=== PATIENT | female | born 2000 | race Caucasian/White ===

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

== ENCOUNTER 2021-05-20 21:03 | Emergency (ER) | payer BC, MEDICAID, SELFPAY ==
[2021-05-20 21:14] VITALS: BP 126/72; PULSE 109; RESP 20; TEMP 36.6; O2SAT 100
--- NOTE | 2021-05-20 22:59 | PC.NURSE ---
No answer when called for vitals recheck.
--- NOTE | 2021-05-20 23:17 | PC.NURSE ---
not present in wr at current time. no answer when called.
== END 2021-05-20 23:18 | disposition left against medical advice (07) ==
LOC: ANHED 23:10
PROVIDERS: PCP Family Medicine Adolescent Medicine
DX: Z04.1 Encounter for examination and observation following transport accident (principal)
CPT/HCPCS: 99199

== ENCOUNTER 2021-10-07 09:31 | Emergency (ER) | payer BC, MEDICAID, SELFPAY ==
[2021-10-07 09:43] VITALS: BP 110/70; PULSE 94; RESP 18; TEMP 36.6; O2SAT 100
--- NOTE | 2021-10-07 10:02 | ED.URI ---
HPI - URI/Sore Throat General Chief Complaint: Upper Respiratory Infection Stated Complaint: COUGH/CP Time Seen by Provider: 10/07/21 10:02 Source: patient and RN notes reviewed Mode of arrival: ambulatory Limitations: no limitations History of Present Illness HPI Narrative: 21-year-old female presented for complaint of nonproductive cough with associated chest pain with coughing and sneezing since last night. She took a negative home COVID test yesterday. Also states 2 weeks ago she tested positive for COVID. She denies associated shortness of breath, wheezing, nausea, vomiting, fevers or chills. Patient is 37 weeks gestation. She has not been taking anything for symptoms. MD elicited complaint: cough Related Data Home Medications Medication Instructions Recorded Confirmed prenat.vits,karen,[id number] 1 tablet PO DAILY 07/24/21 07/29/21 Allergies Allergy/AdvReac Type Severity Reaction Status Date / Time No Known Allergies Allergy Verified 10/07/21 10:08 Review of Systems Review of Systems: CONSTITUTIONAL: denies malaise, chills, sweats, fever EYES: Denies visual changes, redness, or discharge ENT: Reports rhinorrhea, congestion, denies sinus pain, otalgia, sore throat CARDIOVASCULAR: Denies palpitations, edema RESPIRATORY: Reports cough, post nasal drainage. Denies dyspnea GASTROINTESTINAL: Denies abdominal pain, nausea, vomiting, diarrhea SKIN: Denies rash or itching MUSCULOSKELETAL: denies myalgia NEUROLOGIC: Denies headache [facility] Family History Family History Other Breast cancer Unknown family medical history Social History Social History Tobacco type: e-cigarettes/vaping Second hand tobacco smoke exposure: Yes Alcohol intake: current Alcohol use details: Socially Substance use: current Last use: LAST TIME-AUGUST 2018 Gender identity (if verbalized by the patient): Female Spiritual care concerns: No Agree to blood products: Yes Exam Narrative: GENERAL: well-appearing EYES: conjunctivae clear ENT: Mucous membranes moist. TM pearly valderrama with dull light reflex bilaterally; no tragal tenderness. Oropharynx erythematous without lesions or exudate, no drooling, no hoarseness, no trismus, uvula midline. NECK: Supple. No lymphadenopathy CHEST: Clear to auscultation, breath sounds equal. No wheezing, rhonchi, rales, or stridor. No respiratory distress, speaks in full sentences. HEART: Regular rate and rhythm. No murmur heard. SKIN: Warm, dry, no rash. NEURO: Alert and oriented x3. PSYCH: Normal mood and affect Course Course Emergency Course: Patient is aware of diagnosis, understands and agrees to treatment plan. Anticipatory guidance given. Patient agrees to follow-up as directed and is aware of reasons to seek care at the emergency department. Portions of this record may have been created with voice recognition software Level of Care: Express Care Visit Vital Signs Vital signs: Vital Signs Temperature 97.8 F 10/07/21 09:43 Pulse Rate 94 10/07/21 09:43 Respiratory Rate 18 10/07/21 09:43 Blood Pressure 110/70 10/07/21 09:43 Pulse Oximetry 100 10/07/21 09:43 Oxygen Delivery Room Air 10/07/21 09:43 Temperature 97.8 F 10/07/21 09:43 Pulse Rate 94 10/07/21 09:43 Respiratory Rate 18 10/07/21 09:43 Blood Pressure 110/70 10/07/21 09:43 Pulse Oximetry 100 10/07/21 09:43 Oxygen Delivery Room Air 10/07/21 09:43 reviewed MDM - URI/Sore Throat MDM Narrative Medical decision making narrative: Covid PCR sent. Advised supportive measures and signs/symptoms to go to the ER. Advised to f/u with obgyn. Pt is appropriate for outpt treatment and f/u. Differential Diagnosis Differential diagnosis: Likely upper respiratory infection, viral infection and bronchitis Discharge Plan Discharge Clinical Impression: Upper respirat
[2021-10-07 21:31] LABS: SARS-CoV-2 RNA PCR Negative
== END 2021-10-07 10:30 | disposition home or self-care (01) ==
PROVIDERS: Emergency Provider Nurse Practitioner Family
DX: J06.9 Acute upper respiratory infection, unspecified (principal); Z20.822 Contact with and (suspected) exposure to COVID-19; F17.290 Nicotine dependence, other tobacco product, uncomplicated
CPT/HCPCS: 99213; C9803; G0463; U0003; U0005

== ENCOUNTER 2021-10-18 07:18 | Inpatient (IN) | payer BC, MEDICAID, SELFPAY ==
[2021-10-18] VITALS (143 sets, daily range): BP systolic 45–177; BP diastolic 18–147; PULSE 56–246; RESP 18; TEMP 36.2–37.1; O2SAT 86–100; BMI 25.9
--- NOTE | 2021-10-18 07:57 | P.PNAN_ITS ---
Anes - Eval Pre Procedure Procedure: Labor epidural Date/Time: 10/18/21 07:57 Pre Op Diagnosis: Labor Patient Data Age: 21 Gender: F Height: Weight: Allergies Allergy/AdvReac Type Severity Reaction Status Date / Time No Known Allergies Allergy Verified 10/15/21 14:27 Home Medications Medication Instructions Recorded Confirmed Type prenat.vits,karne,[id number] 1 tablet PO DAILY 07/24/21 10/07/21 History Patient hx anesthesia problems: none Family hx anesthesia problems: none Results Review: All pre-operative results and documents have been reviewed as part of the pre- operative evaluation. [facility] Past Medical History Medical History (Updated 10/18/21 @ 08:00 by Jazmyne Marcelo CRNA) Bipolar 1 disorder Marijuana smoker PTSD (post-traumatic stress disorder) Family History Family History Other Breast cancer Other Unknown family medical history Social History Social History Tobacco type: e-cigarettes/vaping Second hand tobacco smoke exposure: Yes Alcohol intake: current Alcohol use details: Socially Substance use: current Last use: June 2021 Gender identity (if verbalized by the patient): Female Spiritual care concerns: No Agree to blood products: Yes Exam Day of Procedure 10/18/21 07:57 Patient weight: overweight Heart: regular rate and rhythm Lungs: normal air movement Airway: Mallampati scale Neurological: alert and oriented
[2021-10-18] MEDS: LACTATED RINGERS 1,000 ML 125 ML IV CONT ×3 (08:18→12:20)
[2021-10-18] MEDS: AMPICILLIN 2 GM/NS 100 ML 2 GM/100 ML BAG IVPB (08:18)
--- NOTE | 2021-10-18 08:20 | LDADM ---
This patient, Jodie Greene, was admitted to Labor/Delivery/Recovery 107 on 10/18/21 at 07:18. Plans for labor, pain management and were discussed with patient. Patient/family oriented to hospital policies and general routines including ID bracelet, bed and alarms, visiting hours, pain management, procedures, bathroom and other care routines, personal items, smoking policy, room service/diet and guest tray routines, security routines, and visiting hours. Patient/Family are encouraged to report perceived risks to care and to ask questions if they do not understand what they are told or what they should do. See OBIX for further documentation.
[2021-10-18 08:28] LABS: Basophils Absolute Auto 0.1 K/mm3 (0.0-0.1); Basophils Percent Auto 0.4 % (0.2-1.2); Eosinophils Absolute Auto 0.1 K/mm3 (0-0.3); Eosinophils Percent Auto 0.6 % (0-4.4); Hematocrit 34.4 % (37.0-47.0); Hemoglobin 10.8 g/dL (12.0-15.0); Immature Granulocyte Percent A 1.2 % (0-0.5); Lymphocytes Absolute Auto 2.08 K/mm3 (0.9-3.2); Lymphocytes Percent Auto 12.2 % (18.3-44.2); Mean Corpuscular HGB Conc 31.4 g/dl (32-36); Mean Corpuscular Hemoglobin 25.1 pg (26-34); Mean Platelet Volume 10.4 fl (7.4-10.4); Monocytes Absolute Auto 0.9 K/mm3 (0.1-0.6); Monocytes Percent Auto 5.3 % (2.6-8.5); Neutrophils Absolute Auto 13.7 K/mm3 (1.3-6.7); Neutrophils Percent Auto 80.3 % (45.5-73.1); Platelet Count Result 292 k/mm3 (150-375); Red Cell Distribution Width 14.8 % (11.5-14.5)
[2021-10-18 09:19] LABS: HIV 1/2 Ab P24 Ag Result Negative (Negative)
[2021-10-18] MEDS: PHENYLEPHRINE 1,000 MCG/10 ML SYRINGE 100 MCG IV PUSH ×2 (09:38→10:23)
[2021-10-18] MEDS: AMPICILLIN 1 GM/NS 50 ML 1 GM/50 ML BAG IVPB (12:23)
--- NOTE | 2021-10-18 13:23 | WPDHPUPDATE1 ---
History and Physical Update Update Date/Time: 10/18/21 13:23 Patient is a 21-year-old 2 para 1001 at 39 weeks gestation who presents for elective induction of labor. She is GBS positive. She received dose of antibiotics. Artificial rupture of membranes was performed. Clear fluid. She was 5 cm. There is reassuring status. History and Physical has been reviewed, including an updated exam of the patient. There are NO changes in the patient's condition. Risks, benefits, and alternatives have been discussed and questions answered. Patient agrees to proceed with procedure.
[2021-10-18] MEDS: OXYTOCIN 30 UNITS/NS 500 ML 30 UNITS/500 ML BAG 999 UNITS IV CONT (13:36)
--- NOTE | 2021-10-18 13:45 | PM.OBPRVD ---
OB - Delivery Note Procedure Delivery date: 10/18/21 Procedure: Induction method: AROM and Per Pitocin Protocol Delivery monitor: External FHT and External Uterine Route of delivery: Laceration Description: None Quantitative Blood Loss (ml): 300 Anesthesia type: Epidural [place] Baby Date of : 10/18/21 Time of : 13:36 Weeks of gestation at delivery: 39 Placenta delivery description: Spontaneous Cord Vessel Description: 3 Vessels score one minute: 9 score ten minutes: 9
[2021-10-18] MEDS: OXYTOCIN 30 UNITS/NS 500 ML 30 UNITS/500 ML BAG 125 UNITS IV CONT (14:11)
[2021-10-18] MEDS: BENZOCAINE 20% AER SPR (*SP) 56 GM CAN 1 SPRAY TOPICAL (15:15)
[2021-10-18] MEDS: WITCH HAZEL 40 PADS 1 PAD TOPICAL (15:15)
[2021-10-18 17:36] LABS: Amphetamine Screen Urine Negative (Negative); Barbiturate Screen Urine Negative (Negative); Benzodiazepines Screen Urine Negative (Negative); Cannabinoid Screen Urine Positive (Negative); Cocaine Screen Urine Negative (Negative); Methadone Screen Urine Negative (Negative); Opiate Screen Urine Negative (Negative); Phencyclidine Screen Urine Negative (Negative)
[2021-10-19] VITALS: BP 111/72; PULSE 78; RESP 18; TEMP 36.9
[2021-10-19] MEDS: IBUPROFEN 600 MG TABLET PO (03:10)
[2021-10-19] MEDS: ACETAMINOPHEN 325 MG TABLET 650 MG PO (03:10)
[2021-10-19] MEDS: LANOLIN (LANSINOH) 7.5 GM CREAM 1 APPLIC TOPICAL (03:11)
[2021-10-19 03:58] VITALS: BP 121/80; PULSE 74; RESP 18; TEMP 36.4
[2021-10-19 05:17] LABS: Hematocrit 28.8 % (37.0-47.0); Hemoglobin 9.6 g/dL (12.0-15.0)
[2021-10-19] MEDS: DOCUSATE SODIUM 100 MG CAPSULE PO (08:31)
[2021-10-19] MEDS: POLYSACCHARIDE IRON COMPLEX 150 MG CAPSULE PO (08:31)
[2021-10-19] MEDS: MULTIVIT/MIN/PREN/FOL AC/IRON TABLET 1 TAB PO (08:32)
[2021-10-19 10:00] VITALS: BP 102/59; PULSE 82; RESP 16; TEMP 36.1; O2SAT 100
--- NOTE | 2021-10-19 13:58 | PM.OBPNVD ---
OB - PN: Subj Subjective Date/time seen: 10/19/21 13:58 Patient comments: no complaints, pain well controlled, incisional pain, tolerating diet and flatus present OB - PN: Obj Data Labs CBC & Chem 7: 10/19/21 03:09 Labs: Laboratory Results - last 24 hr 10/18/21 10/19/21 16:29 03:09 Hgb 9.6 L Hct 28.8 L Urine Opiates Screen Negative Urine Methadone Screen Negative Ur Barbiturates Screen Negative Ur Phencyclidine Scrn Negative Ur Amphetamine Screen Negative U Benzodiazepines Scrn Negative Urine Cocaine Screen Negative U Cannabinoids Screen Positive A OB - PN A/P Plan day: 1 Plan: routine care Comments: No problems, routine care, to D/C Time Spent With Patient Time: Total time spent is greater than 50% in coordination of care (as documented) at patient's floor/unit and/or counseling patient: Exam Const: General: comfortable, no acute distress and alert Resp: Effort & Inspection: normal respiratory effort Auscultation: no crackles, no rales and no rhonchi Cardio: Rate: regular rate Heart sounds: no click, no murmurs and no rubs GI: Inspection: non-distended GI Palp: No Tenderness to palpation present (GI) Auscultation: normal bowel sounds Other: Incision - CDI Extrem: General: normal to inspection, no pedal edema and no calf tenderness
--- NOTE | 2021-10-19 13:59 | PM.OBDSVD ---
DS: Admitting Diagnosis Discharge Date 10/19/21 Admitting Diagnosis term OB - DS: Summary OB Procedures : None OB Procedures Intrapartum: Spontaneous Vag Delivery OB Procedures: : None Time Spent with Patient Time attestation: Total time spent providing and/or coordinating discharge services: DS: Data Data Completed and Pending Labs on day of discharge: Labs from last 24 hours 10/19/21 10/18/21 03:09 16:29 Hgb 9.6 L Hct 28.8 L Urine Opiates Screen Negative Urine Methadone Screen Negative Ur Barbiturates Screen Negative Ur Phencyclidine Scrn Negative Ur Amphetamine Screen Negative U Benzodiazepines Scrn Negative Urine Cocaine Screen Negative U Cannabinoids Screen Positive A Discharge Plan Discharge Discharging Clinician: Mey Fuller Patient Disposition: Home, Self-Care Activity: pelvic rest Diet: regular Patient Instructions: Antibiotic Form Stand Alone Forms: General Discharge Information Follow-up/Referrals: Mey Fuller MD [Physician] - Discharge Medications: Continued prenat.vits,karen,[id number] Tablet 1 tablet PO DAILY Date of admission: 10/18/21 07:18 Primary Care Provider: UNKNOWN,DOCTOR Admitting Provider: Mey Fuller Attending physician on admission: Mey Fuller Condition: Stable
--- NOTE | 2021-10-19 15:55 | PC.NURSE ---
PT discharged to home ambulatory accompanied by fob and infant and taken to waiting car. Follow up appts confirmed
[2021-10-21 07:45] VITALS: BP 116/72; PULSE 94; RESP 16; TEMP 36.9; O2SAT 99
[2021-10-21 09:26] LABS: Rapid Plasma Reagin Non-Reactive (NonReactive)
== END 2021-10-19 15:55 | disposition home or self-care (01) | DRG 807 ==
LOC: ANHLDR 07:56 → ANHOB2 16:55
PROVIDERS: Admitting Provider Obstetrics & Gynecology; Visit Provider Obstetrics & Gynecology
DX: O99.824 Streptococcus B carrier state complicating childbirth (principal); Z37.0 Single live birth; Z3A.38 38 weeks gestation of pregnancy; O69.81X0 Labor and delivery complicated by cord around neck, without compression, not applicable or unspecified; O99.344 Other mental disorders complicating childbirth; F31.9 Bipolar disorder, unspecified; F43.10 Post-traumatic stress disorder, unspecified; Z86.16 Personal history of COVID-19
CPT/HCPCS: 36415; 80307; 85014; 85018; 85025; 86592; 86703; 86850; 86900; 86901; A9270; G0432; J0290; J2370; J2590; J2795; J7120

== ENCOUNTER 2021-10-24 03:34 | Day surgery (SDC) | payer BC, MEDICAID, SELFPAY ==
[2021-10-23 08:27] VITALS: BMI 23.2
--- NOTE | 2021-10-23 08:34 | PC.NURSE ---
Report to the Outpatient Waiting Room, entrance under the green pavilion located off [facility], at time 1200 on date . OR Time: 1400. - You and your visitor will be asked a series of questions to screen for COVID 19 for your protection. - Only one visitor is allowed at this time. - The patient visitor is requested to leave or wait in car when not with patient. - A mask is required within the hospital. Patients may have clear liquids (water, carbonated beverages, clear teas, apple juice) until 3 hours prior to surgery with a maximum of 20 ounces. - No food from midnight until time of surgery Take the following medications with a SIP of water the morning of surgery: N/A Medications to discontinue per physician: N/A Date to take last dose: N/A Please no make-up, nail [facility], hairspray, perfume, deodorant, or body powder the day of surgery. No jewelry (including any body piercings) or valuables the day of surgery, leave them at home. Please take a shower or bath the night before, or the morning of, surgery with an antibacterial soap. Wear comfortable, loose fitting clothing. - Jewelry must be removed prior to entering the operating room. Rings and piercings that are not removed may be cut off. - The hospital will not accept responsibility for valuables. - Please leave all valuables, including medications, at home the day of surgery. If you are going home after surgery, a licensed wheelchair van driver must drive you home. - NO public transportation without another adult. - We recommend that an adult stay with you for 24 hours following discharge. - We also recommend that you do not drive, make important decision, drink alcoholic beverages, or take any drugs that were not prescribed by your health care provider for at least 24 hours after your discharge time. Follow any additional instructions given to you from your surgeon. If you or anyone in your household have experienced Covid symptoms in the past week, please notify your surgeon or the nurse liaison at the phone number below for possible testing. Telephone instructions given to PT - JOSHUA MCDANIEL and asked if any additional questions and then verbalized understanding. Patient advised to call surgeon office or pre surgery nurse liaison [phone] if any additional questions.
--- NOTE | 2021-10-23 13:26 | P.PNAN_ITS ---
Anes - Initial Pre Proc Eval Procedure: Operation Date: 10/24/21 14:00 Proposed Procedures p Suction Dilation and Curettage - Mey Fuller MD Date/Time: 10/23/21 13:26 Surgeon: Mey Fuller MD Pre Op Diagnosis: retained products Patient Data Age: 21 Gender: F Height: 1.5 m Weight: 52.16 kg Allergies Allergy/AdvReac Type Severity Reaction Status Date / Time No Known Allergies Allergy Verified 10/23/21 08:26 Home Medications Medication Instructions Recorded Confirmed Type No Home Medications 10/23/21 10/24/21 History Patient hx anesthesia problems: none Family hx anesthesia problems: none Results Review: All pre-operative results and documents have been reviewed as part of the pre- operative evaluation. [facility] Past Medical History Medical History (Updated 10/18/21 @ 08:00 by Jazmyne Marcelo CRNA) Bipolar 1 disorder Marijuana smoker PTSD (post-traumatic stress disorder) Family History Family History Other Breast cancer Other Unknown family medical history Social History Social History Smoking status: Never smoker Tobacco type: e-cigarettes/vaping Second hand tobacco smoke exposure: No Alcohol intake: never Alcohol use details: Socially Substance use: former Substance use type: marijuana Last use: June 2021 Living arrangements: with family Gender identity (if verbalized by the patient): Female Spiritual care concerns: No Agree to blood products: Yes Anes - Eval Final PreProcedure Day of Procedure 10/23/21 13:26 Patient weight: normal Heart: regular rate and rhythm Lungs: clear to auscultation Airway: Mallampati scale class II Neurological: alert and oriented ASA classification: II Emergent: no Anesthetic plan: proceed Anesthesia type and monitoring: general GIVS and LMA and standard monitoring Results Review: All pre-operative results and documents have been reviewed as part of the pre-operative evaluation. Informed Consent: The patient's anesthetic plan and its attendant risks and benefits were discussed with the patient/family/POA. Questions were solicited and answers provided to the satisfaction of the patient/family/POA.
[2021-10-24] VITALS (7 sets, daily range): BP systolic 103–137; BP diastolic 66–92; PULSE 79–91; RESP 12–20; TEMP 36.9; O2SAT 97–98
[2021-10-24] MEDS: ACETAMINOPHEN 500 MG TABLET 1000 MG PO (12:11)
[2021-10-24] MEDS: LACTATED RINGERS 1,000 ML 30 ML IV CONT (12:30)
--- NOTE | 2021-10-24 14:35 | PM.IMHP ---
H&P: HPI History of Present Illness Date/Time: 10/24/21 14:35 Chief Complaint: Vaginal bleeding Narrative: This patient is a 21-year-old female with a retained placenta. We have agreed to perform dilatation curettage. She understands that injuries may occur that result in hospitalization, more surgery, and severe illness. She understands risk of hemorrhage and infection. Review of Systems Review of Systems: All systems reviewed & are unremarkable except as noted in HPI and below Constitutional: Constitutional: Denies chills, Denies fatigue, Denies fever(s) and Denies weakness Eyes: Eyes: Denies blurry vision, Denies change in vision, Denies loss of peripheral vision, Denies loss of vision, Denies other visual disturbances and Denies eye pain ENT: Denies vertigo, Denies dizziness, Denies hearing loss, Denies mouth pain, Denies nasal obstruction, Denies neck mass and Denies neck pain Cardiovascular: Cardiovascular: Denies chest pain, Denies diaphoresis, Denies syncope, Denies leg edema and Denies dyspnea Respiratory: Respiratory: Denies chest congestion, Denies cough, Denies hemoptysis, Denies dyspnea and Denies wheezing Gastrointestinal: Gastrointestinal: Denies abdominal pain, Denies constipation, Denies diarrhea, Denies nausea and Denies vomiting Genitourinary: Genitourinary: Denies hematuria, Denies change in libido, Denies nocturia, Denies genital lesions, Denies flank pain and Denies urinary urgency Musculoskeletal: Musculoskeletal: Denies abnormal gait, Denies back pain, Denies myalgias, Denies arthralgias, Denies joint swelling, Denies muscle weakness and Denies neck pain Integumentary/Breasts: Skin/Breast: Denies swelling, Denies breast pain, Denies breast mass, Denies dry skin, Denies nipple discharge, Denies unusual bruising and Denies jaundice Neurologic: Denies Neuro-related abnormal movements, Denies Abnormal speech present, Denies abnormal gait, Denies behavioral changes, Denies confusion, Denies vertigo, Denies dizziness, Denies syncope, Denies loss of vision, Denies memory loss, Denies convulsions and Denies weakness Psychiatric: Psychiatric: Denies abnormal sleep pattern, Denies behavioral changes, Denies change in libido, Denies confusion, Denies depression, Denies anhedonia and Denies memory loss Endocrine: Endocrine: Reports no additional endocrine complaints, Denies change in libido and Denies fatigue Hematologic/Lymphatic: Hematologic/Lymphatic: Reports no additional hematologic/lymphatic complaints Allergic/Immunologic: Allergic/Immunologic: Reports no additional allergic/immunologic complaints and Denies wheezing PMFSH Past Medical History Medical History (Updated 10/24/21 @ 14:37 by Mey Fuller MD) Bipolar 1 disorder Marijuana smoker PTSD (post-traumatic stress disorder) Family History Family History Other Breast cancer Other Unknown family medical history Social History Social History Smoking status: Never smoker Tobacco type: e-cigarettes/vaping Second hand tobacco smoke exposure: No Alcohol intake: never Alcohol use details: Socially Substance use: former Substance use type: marijuana Last use: June 2021 Living arrangements: with family Gender identity (if verbalized by the patient): Female Spiritual care concerns: No Agree to blood products: Yes Meds Home Medications and Allergies Home Medications Medication Instructions Recorded Confirmed Type No Home Medications 10/23/21 10/24/21 History Allergies Allergy/AdvReac Type Severity Reaction Status Date / Time No Known Allergies Allergy Verified 10/23/21 08:26 Vital Signs Vital Signs - 24 hr 10/24/21 12:09 Temperature 98.4 F Pulse Rate 90 Respiratory Rate 20 Blood Pressure 103/81 Pulse Oximetry 98 Oxygen Delivery Room Air Exam Const: General: cooperativ
--- NOTE | 2021-10-24 14:37 | WPDHPUPDATE1 ---
History and Physical Update Update Date/Time: 10/24/21 14:37 History and Physical has been reviewed, including an updated exam of the patient. There are NO changes in the patient's condition. Risks, benefits, and alternatives have been discussed and questions answered. Patient agrees to proceed with procedure.
[2021-10-24] MEDS: LIDOCAINE HCL 1% PF 30 ML VIAL INFILTRATE (15:10)
--- NOTE | 2021-10-24 15:18 | W.PM.PROC2 ---
Procedure Note - Detailed Date of Procedure 10/24/21 Pre-op Diagnosis retained products Post-op Diagnosis Same Procedure Performed Suction D&C Surgeon Mey Fuller MD Anesthesia MAC Indications Retained placenta Findings normal-appearing vulva vagina and cervix to. Moderate amount of placenta within the uterus. 15 cm uterus Description of Procedure the patient was taken the operating room. She was prepped and draped in dorsal lithotomy position after induction of mac anesthesia. A speculum was placed in the vagina. Cervix grasped with tenaculum. The cervix was dilated already to about 2 cm. A 12. Nepalese curved curette was used to perform suction D&C. The curette was introduced and vacuum was applied. The curette was removed over all surfaces of the intrauterine cavity multiple times. This was done until all the surfaces were clear and had the familiar grainy texture they can be felt through the instrument. A sharp curette was then used to curettage all the surfaces. The suction cup was then reapplied 1 more time to remove any debris. The instruments were removed. The speculum and tenaculum were removed. The patient tolerated the procedure well. She was taken recovery room stable condition. Estimated Blood Loss 300 Drains No Packing No Pathology Yes Complications No immediate complications Condition Stable Disposition PACU
--- NOTE | 2021-10-24 16:49 | SUR.PHASEII ---
1630 - pt was getting dressed. felt a gush.. large clot and bleeding noted. pad and linens saturated. dr. ferraro called and order received for pitocin infusion.
[2021-10-24] MEDS: OXYTOCIN 40 UNITS in LACTATED RINGERS 1,000 ML 999 UNITS IV CONT (17:02)
--- NOTE | 2021-10-24 18:29 | SUR.PHASEII ---
Patient had no clots and bleeding slowed way down after Pitocin.
== END 2021-10-24 18:23 | disposition home or self-care (01) ==
PROVIDERS: PCP Family Medicine Adolescent Medicine; Visit Provider Obstetrics & Gynecology
PROC: (CPT 59160; principal; 2021-10-24 14:00)
DX: O73.0 Retained placenta without hemorrhage (principal)
CPT/HCPCS: 59160; 88307; A9270; J2250; J2590; J2704; J3010; J7120

== ENCOUNTER 2023-06-12 08:37 | Emergency (ER) | payer BC, MEDICAID, SELFPAY ==
--- NOTE | 2023-06-12 08:43 | ED.URI ---
HPI - URI/Sore Throat General Chief Complaint: Upper Respiratory Infection Stated Complaint: cough,body aches Time Seen by Provider: 06/12/23 09:01 Source: patient and RN notes reviewed Mode of arrival: ambulatory Limitations: no limitations History of Present Illness HPI Narrative: 22-year-old female presents concern for 3 day history of body aches, chills, sweats, nasal congestion, productive cough, sore throat, diarrhea. Reports exposure to flu and strep at work. Reports she has been alternating Tylenol ibuprofen. MD elicited complaint: cough and sore throat Related Data Allergies Allergy/AdvReac Type Severity Reaction Status Date / Time No Known Allergies Allergy Verified 06/12/23 08:55 Review of Systems Review of Systems: CONSTITUTIONAL: Reports malaise, chills, sweats. Denies fever. EYES: Denies visual changes, redness, or discharge. ENT: Reports rhinorrhea, congestion, and sore throat. CARDIOVASCULAR: Denies chest pain, palpitations, or edema. RESPIRATORY: Reports productive cough. Denies dyspnea. GASTROINTESTINAL: Denies abdominal pain, nausea, vomiting, diarrhea SKIN: Denies rash or itching. MUSCULOSKELETAL: Denies myalgia. NEUROLOGIC: Denies headache. All systems reviewed & are unremarkable except as noted in HPI and below PMFSH Past Medical History Medical History (Updated 06/12/23 @ 09:24 by Jeannette Robledo NP) Bipolar 1 disorder Marijuana smoker PTSD (post-traumatic stress disorder) Family History Family History Other Breast cancer Other Unknown family medical history Social History Social History Smoking status: Never smoker Tobacco type: e-cigarettes/vaping Second hand tobacco smoke exposure: No Alcohol intake: never Alcohol use details: Socially Substance use: former Substance use type: marijuana Last use: June 2021 Living arrangements: with family Occupation/Education: occupation Gender identity (if verbalized by the patient): Female Spiritual care concerns: No Agree to blood products: Yes Comments At time of signature, agree with nursing past medical, surgical, social and family history. There is no relevant family history pertinent to the presenting complaint Exam Narrative: GENERAL: Well-appearing, well-nourished, and in no acute distress. HEAD: Normocephalic EYES: PERRLA, conjunctivae clear ENT: Nares clear, turbinates edematous and erythematous, clear discharge. Mucous membranes moist. TM pearly valderrama with dull light reflex bilaterally; no tragal tenderness. Oropharynx not erythematous without lesions. Tonsils not enlarged and without exudate, no drooling, no hoarseness, no trismus, uvula midline. NECK: Supple. No lymphadenopathy CHEST: Clear to auscultation, breath sounds equal. No wheezing, rhonchi, rales, or stridor. No respiratory distress, speaks in full sentences. HEART: Regular rate and rhythm. No murmur heard. SKIN: Warm, dry, no rash. NEURO: Alert and oriented x3. PSYCH: Normal mood and affect Course Course Emergency Course: Patient is aware of diagnosis, understands and agrees to treatment plan. Anticipatory guidance given. Patient agrees to follow-up as directed and is aware of reasons to seek care at the emergency department. Portions of this record may have been created with voice recognition software Level of Care: Express Care Visit Vital Signs Vital signs: Reviewed. MDM - URI/Sore Throat MDM Narrative Medical decision making narrative: Differential diagnosis considered: Soria virus, strep pharyngitis, allergic rhinitis, upper respiratory tract infection, sinusitis, rhinosinusitis, nasopharyngitis. viral pharyngitis, otitis media, otitis externa, pneumonia, bronchitis, viral cough syndrome, viral syndrome, and influenza. Exam findings show no acute concerns or changes; patient is non-toxic appearing and is
[2023-06-12 08:57] VITALS: BP 105/62; PULSE 99; RESP 16; TEMP 36.8; O2SAT 100
== END 2023-06-12 09:32 | disposition home or self-care (01) ==
PROVIDERS: Emergency Provider Nurse Practitioner; PCP Family Medicine Adolescent Medicine
DX: J06.9 Acute upper respiratory infection, unspecified (principal); Z20.822 Contact with and (suspected) exposure to COVID-19; F17.290 Nicotine dependence, other tobacco product, uncomplicated
CPT/HCPCS: 87081; 87426; 87804; 87880; 99213; G0463

== ENCOUNTER 2024-06-27 10:04 | Emergency (ER) | payer BC, MEDICAID, SELFPAY ==
[2024-06-27 10:10] VITALS: BP 112/63; PULSE 92; RESP 16; TEMP 36.2; O2SAT 96
--- NOTE | 2024-06-27 10:19 | ED.EYEPROB ---
HPI - Eye Problem General Chief complaint: Eye Problems Stated complaint: Eye Problems Time Seen by Provider: 06/27/24 10:21 Source: patient Mode of arrival: ambulatory Limitations: no limitations History of Present Illness HPI Narrative: 23-year-old female presented for complaint of left upper eye redness, itching, swelling, and pain. Onset 4 days. States this morning her eye was matted shut. Denies vision changes, photophobia, headache, or FB. 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 chief complaint: eye pain Related Data Allergies Allergy/AdvReac Type Severity Reaction Status Date / Time No Known Allergies Allergy Verified 06/27/24 10:21 Review of Systems Review of Systems: CONSTITUTIONAL: Denies body aches, fever, chills EYES:Endorses swelling, redness and pain to left eye; Denies visual changes, FB sensation, photophobia ENT: Denies rhinorrhea, congestion, sore throat, or otalgia. CARDIOVASCULAR: Denies chest pain, palpitations GASTROINTESTINAL: Denies abdominal pain, nausea, vomiting, or diarrhea. SKIN: Denies rash NEUROLOGIC: Denies headache All systems reviewed & are unremarkable except as noted in HPI and below PMFSH Past Medical History Medical History Bipolar 1 disorder Marijuana smoker PTSD (post-traumatic stress disorder) Family History Family History Other Breast cancer Other Unknown family medical history Social History Social History (Updated 12/22/23 @ 13:51 by Gabriela Martino APRN) Smoking status: Current every day smoker Tobacco type: e-cigarettes/vaping Second hand tobacco smoke exposure: No Alcohol intake: never Alcohol use details: Socially Substance use: former Substance use type: marijuana Last use: June 2021 Living arrangements: with family Occupation/Education: occupation Gender identity (if verbalized by the patient): Female Spiritual care concerns: No Agree to blood products: Yes Comments At time of signature, I have reviewed and agree with nursing past medical, surgical, social and family history unless otherwise noted. Please see nursing chart for further information. There is no relevant family history pertinent to the presenting complaint Exam Narrative: GENERAL: Well-appearing HEAD: Normocephalic, atraumatic. EYES: left upper eye lid swelling and redness with external hordeolum noted medially with active white drainage; tender. PERRLA, EOMI. No conjunctival injection, Lid eversion shows no foreign body ENT: Mucous membranes pink and moist. No rhinorrhea. TMs normal bilaterally. CHEST: even and labored ABDOMEN: Gravid SKIN: Warm, dry, no rash. Normal skin turgor. NEURO: No focal deficits. Alert and oriented x3 PSYCH: Normal affect. Course Course Emergency Course: Patient is aware of diagnosis, understands and agrees to treatment plan. Anticipatory guidance given. Patient agrees to follow-up as directed and is aware of reasons to seek care at the emergency department. Portions of this record may have been created with voice recognition software Level of Care: Express Care Visit Vital Signs Vital signs: Vital Signs Temperature 97.1 F L 06/27/24 10:10 Pulse Rate 92 06/27/24 10:10 Respiratory Rate 16 06/27/24 10:10 Blood Pressure 112/63 06/27/24 10:10 Pulse Oximetry 96 06/27/24 10:10 Oxygen Delivery Room Air 06/27/24 10:10 Temperature 97.1 F L 06/27/24 10:10 Pulse Rate 92 06/27/24 10:10 Respiratory Rate 16 06/27/24 10:10 Blood Pressure 112/63 06/27/24 10:10 Pulse Oximetry 96 06/27/24 10:10 Oxygen Delivery Room Air 06/27/24 10:10 MDM - Eye Problem MDM Narrative Medical decision making narrative: Discussed physical exam findings c/w stye, advised it is actively draining and this is the appropriate treatment. Pt is and would like rx abx if sx worsen. Advised supportive measures and signs/symptoms to go to the ER. Pt is appropriate for outpt treatment and f/u. Of note, pt reports and states she follows with Dr Fuller. No notes available since 11/2021. Differential Diagnosis Differential diagnosis: Likely corneal abrasion, conjunctivitis, acute iritis, hyphema, periorbital cellulitis, corneal ulcer and other (stye) Discharge Plan Discharge Clinical Impression: Hordeolum external Patient Disposition: Home, Self-Care Condition: Stable Instructions: Antibiotic Form, Lori (ED) Additional Instructions: Apply warm, moist compresses on the affected area frequently (for 5 to 10 minutes five times per day) in order to help with drainage. Massage and gentle wiping of the affected eyelid after the warm compress can also help with drainage. You can use baby shampoo to wash the eye area Avoid wearing eye makeup or contact lenses Take antibiotic if no improvement If the lesion does not improve within one week, please follow up with an cryptologic technician operator/analyst for further management. [facility] [phone] [facility]: [facility] [phone] [facility] [phone] [facility] [phone] Patient Language: Turkish Prescriptions: New cephalexin 500 mg capsule 500 mg PO Q12H 5 Days Qty: 10 0RF No Action aripiprazole 2 mg tablet 2 mg PO QHS Qty: 30 0RF Follow-up/Referrals: Jacek Bernal MD [Primary Care Provider] - Stand Alone Forms: Work/School Release IP Time of Disposition: 10:35
--- OUTSIDE RECORDS SUMMARY | 2024-06-27 11:13 | XMS_ITS | Data Portability ---
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 Disorder false Maternal Metabolic Disorder (eg, Type 1 Diabetes , PKU) false Patient Or Baby's Father Had A Child With Defects Not Listed Above false Recurrent Loss, Or A Stillbirth false Medications (including Suppl ements, Vitamins, Herbs, OTC Drugs), Illicit/Recreational Drugs, Alcohol true MJ If Yes, Agent(s) And Strength/Dosage false Any Other Genetic History false Live With Someone With TB Or Exposed To TB false Patient Or Partner Has History Of Genital Herpes false Rash Or Viral Illness Since Last Menstrual Perio d false History Of STD, Gonorrhea, Chlamydia, HPV, Syphi lis false Other Infection History false History of HIV false History of Hepatitis false Prior GBS-infected child false Hemoglobinopathy Or Carrier false Other Structural Defect false Recent Travel History Outside of Country false Delivery Information Delivery Date Delivery Type Labor Anesthesia Weeks Gestation Incision Type Labor Labor Length Hrs Delivered By Post Complications Tubal Sterilization Discharge Date Comments 2 Maddie [facility]-Ep idural 38.3 Mendez Bradley MD Gbs+ Discharge Information Feeding Method Contraceptive Method Maternal HG B and HCT Levels Ob Episode Information Episode Created Date Number of Fetuses Patient Bloodtype Patient rh Status Prepregnancy Weight lbs Domestic Partner Domestic Partner Phone Father Name Cyber Security Systems Engineer Status 02/18/20 24 1 B Positive 95 August OPEN Fetus Data First Name Last Name Admitted to NICU Weight (g) Sex Living Outcome Pediatric Complications Fetus ID Race Codes Race Delivery Type [id number] Problems Problem Notes Problem Name Start Date End Date Resolution Snomed Code Not e Anemia 06/06/2024 [id number] advised t o start taking slow fe Naga Calculation Initial Naga Date Initial Exam Date Initial Exam Provider Initial Ultrasound Date Last Menstrual Period Date Ultra Sound Weeks Gestation 02/18/2024 01/27/2024 11/24/2023 9 Eighteen To Twenty Week Naga Update Ultra Sound Date Fundal Height At Umbil Quickening Date Ultra Sound Latest Weeks Gestation Final Naga Confirmed By Final Naga Confirmed Date Final Naga Date Ultra Sound Latest Days Gestation 0 [email or web address] 02/18/2024 08/31/19 25 0 Pre- Flowsheet Flowsheet Date 02/18/2024 Crouch Score Blood Edema Fundus Height Fundus Units Glucose Ketones Leukocytes Nitrite Labor Signs Protein Cervic Dilation Cervic Effacement Cervic Station 12 cm Type Weight in lbs Pre/Post Dialysis Refused Weight 98.8872458924744 BP Diastolic BP Location Tested BP Systolic BP Type 63 L arm 97 sitting Fetus Heart Rate Present A 155 Fetus Movement A No Comments this patient is a 23-year-ol d multiparous female at 12 weeks' gestation who presents for initial care. She has a history of term vaginal births. Her medical, surgical, obstetric history is unremarkable. She is vaccinated. She was given precautions recommendations for . We talked about vaccines in . Talked about care in detail. She is having genetic testing. She had a normal 12 week ultrasound. To begin routine care. Flowsheet Date 03/14/2024 Crouch Score Blood Edema Fundus Height Fundus Units Glucose Ketones Leukocytes Nitrite Labor Signs Protein Cervic Dilation Cervic Effacement Cervic Station Type Weight in lbs Pre/Post Dialysis Refused 107.284979582327 BP Diastolic BP Location Tested BP Systolic BP Type 73 L arm 108 sitting Fetus Heart Rate Present A 145 Fetus Movement A No Comments no complaints, no problems, routine care, no contractions, no vaginal bleeding, no loss of fluid, no cramping Flowsheet Date 04/08/2024 Crouch Score Blood Edema Fundus Height Fundus Units Glucose Ketones Leukocytes Nitrite Labor Signs Protein Cervic Dilation Cervic Effacement Cervic Station Type Weight in lbs Pre/Post Dialysis Refused BP Diastolic BP Location Tested BP Systolic BP Type Fetus Heart Rate Present Fetus Movement Comments Flowsheet Date 04/08/2024 Crouch Score Blood Edema Fundus Height Fundus Units Glucose Ketones Leukocytes Nitrite Labor Signs Protein Cervic Dilation Cervic Effacement Cervic Station Type Weight in lbs Pre/Post Dialysis Refused 108.867790397092 BP Diastolic BP Location Tested BP Systolic BP Type 70 L arm 112 sitting Fetus Heart Rate Present A 154 Fetus Movement A Yes Comments no complaints, no problems, routine care, no contractions, no vaginal bleeding, no loss of fluid, no cramping Flowsheet Date 05/06/2024 Crouch Score Blood Edema Fundus Height Fundus Units Glucose Ketones Leukocytes Nitrite Labor Signs Protein Cervic Dilation Cervic Effacement Cervic Station 24 cm Type Weight in lbs Pre/Post Dialysis Refused 117.839667178195 BP Diastolic BP Location Tested BP Systolic BP Type 74 L arm 122 sitting Fetus Heart Rate Present A 148 Present Fetus Movement A Yes Comments no complaints, no problems, routine care, no contractions, no vaginal bleeding, no loss of fluid, no cramping Flowsheet Date 06/03/2024 Crouch Score Blood Edema Fundus Height Fundus Units Glucose Ketones Leukocytes Nitrite Labor Signs Protein Cervic Dilation Cervic Effacement Cervic Station 28 cm Type Weight in lbs Pre/Post Dialysis Refused Weight 122.583981631120 BP Diastolic BP Location Tested BP Systolic BP Type 70 L arm 123 sitting Fetus Heart Rate Present A 144 Present Fetus Movement A Yes Comments no complaints, no problems, routine care, no contractions, no vaginal bleeding, no loss of fluid, no cramping Flowsheet Date 06/17/2024 Crouch Score Blood Edema Fundus Height Fundus Units Glucose Ketones Leukocytes Nitrite Labor Signs Protein Cervic Dilation Cervic Effacement Cervic Station Type Weight in lbs Pre/Post Dialysis Refused Weight 124.784798193683 BP Diastolic BP Location Tested BP Systolic BP Type 68 L arm 107 sitting Fetus Heart Rate Present A 140 Present Fetus Movement A Yes Comments no complaints, no problems, routine care, no contractions, no vaginal bleeding, no loss of fluid, no cramping Menstrual History Last Menstrual Date Menses Monthly On Bcp Conception Prior Menses Frequency Hcg Plus Date Menarche Onset Age 0811/24/2023 Delivery Information Delivery Date Delivery Type Labor Anesthesia Weeks Gestation Incision Type Labor Labor Length Hrs Delivered By Post Complications Tubal Sterilization Discharge Date Comments Discharge Information Feeding Method Contraceptive Method Maternal HG B and HCT Levels
== END 2024-06-27 10:36 | disposition home or self-care (01) ==
PROVIDERS: Emergency Provider Nurse Practitioner Family; PCP Family Medicine Adolescent Medicine
DX: O99.891 Other specified diseases and conditions complicating pregnancy (principal); Z3A.00 Weeks of gestation of pregnancy not specified; H00.014 Hordeolum externum left upper eyelid; O99.330 Smoking (tobacco) complicating pregnancy, unspecified trimester; F17.290 Nicotine dependence, other tobacco product, uncomplicated
CPT/HCPCS: 99213; G0463

== ENCOUNTER 2024-08-15 05:54 | Inpatient (IN) | payer BC, MEDICAID, SELFPAY ==
[2024-08-15] VITALS (87 sets, daily range): BP systolic 63–138; BP diastolic 15–111; PULSE 55–203; RESP 18; TEMP 36.6–36.9; O2SAT 82–100; BMI 29.5
[2024-08-15] MEDS: LACTATED RINGERS 500 ML 999 ML IV CONT (07:44)
--- NOTE | 2024-08-15 08:10 | LDADM ---
This patient, Jodie Greene, was admitted to Labor/Delivery/Recovery 106 on 08/15/24 at 05:54. Plans for labor, pain management and were discussed with patient. Patient/family oriented to hospital policies and general routines including ID bracelet, bed and alarms, visiting hours, pain management, procedures, bathroom and other care routines, personal items, smoking policy, room service/diet and guest tray routines, security routines, and visiting hours. Patient/Family are encouraged to report perceived risks to care and to ask questions if they do not understand what they are told or what they should do. See OBIX for further documentation.
[2024-08-15 08:12] LABS: Basophils Absolute Auto 0.1 K/mm3 (0.0-0.1); Basophils Percent Auto 0.4 % (0.2-1.2); Eosinophils Absolute Auto 0.2 K/mm3 (0-0.3); Hematocrit 37.7 % (37.0-47.0); Hemoglobin 11.7 g/dL (12.0-15.0); Immature Granulocyte Absolute 0.24 K/mm3 (0.00-0.031); Immature Granulocyte Percent A 1.6 % (0-0.5); Lymphocytes Absolute Auto 2.81 K/mm3 (0.9-3.2); Lymphocytes Percent Auto 18.5 % (18.3-44.2); Mean Corpuscular Volume 80.6 fl (80-100); Mean Platelet Volume 11.9 fl (7.4-10.4); Monocytes Absolute Auto 0.8 K/mm3 (0.1-0.6); Monocytes Percent Auto 5.3 % (2.6-8.5); Neutrophils Absolute Auto 11.1 K/mm3 (1.3-6.7); Neutrophils Percent Auto 73.2 % (45.5-73.1); Platelet Count Result 259 k/mm3 (150-375); Red Blood Count 4.68 M/mm3 (4.2-5.4); White Blood Count 15.2 K/mm3 (4.5-10.0)
[2024-08-15] MEDS: LACTATED RINGERS 1,000 ML 125 ML IV CONT (08:30)
--- NOTE | 2024-08-15 08:55 | WPDHPUPDATE1 ---
History and Physical Update Update Date/Time: 08/15/24 08:55 24-year-old multi part presents in labor. Painful contractions and advanced cervical dilation. 7 cm/90%/-1. Artificial rupture membranes was performed. Clear fluid. Epidural has been placed. Will augment with Pitocin if necessary. Expectant management. History and Physical has been reviewed, including an updated exam of the patient. There are NO changes in the patient's condition. Risks, benefits, and alternatives have been discussed and questions answered. Patient agrees to proceed with procedure.
[2024-08-15 08:57] LABS: Syphilis IgG/IgM Antibody Negative (Negative)
[2024-08-15 09:04] LABS: HIV 1/2 Ab P24 Ag Result Negative (Negative)
[2024-08-15] MEDS: ePHEDrine sulfate INJ 50 MG/ML AMPUL IV PUSH (09:44)
[2024-08-15] MEDS: OXYTOCIN 30 UNITS/NS 500 ML 30 UNITS/500 ML BAG 999 UNITS IV CONT (11:23)
--- NOTE | 2024-08-15 11:26 | PM.OBPRVD ---
OB - Vaginal Delivery Note Procedure Delivery date: 08/15/24 Delivery augmentation: Rupture of Membranes Delivery monitor: External FHT and External Uterine Route of delivery: Episiotomy description: None Laceration Description: None Specimen: No Quantitative Blood Loss (ml): 200 Anesthesia type: Epidural Disposition: Floor Complications: No immediate complications
[2024-08-15] MEDS: OXYTOCIN 30 UNITS/NS 500 ML 30 UNITS/500 ML BAG 125 UNITS IV CONT (12:02)
[2024-08-15] MEDS: DOCUSATE SODIUM 100 MG CAPSULE PO (15:16)
--- NOTE | 2024-08-15 15:30 | PC.NURSE ---
Introductions were made, then consulted with patient to assess needs related to . Discussed with mother her plans to feed her and the experience so far. She has fed independently. She breastfed her other children. Resources provided for inpatient and outpatient services with the feeding sheet, mom/baby guide and name written on the communication board. Mother voiced understanding of information and will call if there is a request for assistance. Reported to the Primary RN.
--- NOTE | 2024-08-15 15:58 | OBPPTRN ---
Patient and baby transferred to post room #281 via (wheelchair). Support person present. Oriented to unit, room, information board, rooming in, admission packet and security measures. Patient verbalizes understanding.
[2024-08-16] VITALS: BP 123/82; PULSE 78; RESP 16; TEMP 36.4; O2SAT 99
[2024-08-16 04:23] LABS: Hemoglobin 10.1 g/dL (12.0-15.0)
--- NOTE | 2024-08-16 08:02 | PM.OBPNVD ---
OB - PN: Subj Subjective Date/time seen: 08/16/24 08:02 Patient comments: no complaints, pain well controlled, incisional pain, tolerating diet and flatus present OB - PN: Obj Data Labs 08/16/24 04:16 Labs: Laboratory Results - last 24 hr 08/15/24 08/16/24 08:02 04:16 WBC 15.2 H RBC 4.68 Hgb 11.7 L 10.1 L Hct 37.7 31.0 L MCV 80.6 MCH 25.0 L MCHC 31.0 L RDW 18.0 H Plt Count 259 MPV 11.9 H Immature Gran % (Auto) 1.6 H Neut % (Auto) 73.2 H Lymph % (Auto) 18.5 [place] % (Auto) 5.3 Eos % (Auto) 1.0 Baso % (Auto) 0.4 Lymph # (Auto) 2.81 [place] # (Auto) 0.8 H Eos # (Auto) 0.2 Baso # (Auto) 0.1 Abs Immat Gran (auto) 0.24 H Absolute Neuts (auto) 11.1 H Absolute Nucleated RBC 0.000 Nucleated RBC % 0.0 Syphilis IgG/IgM Ab Negative HIV 1&2 Ab/P24 Ag 4thGn Negative Blood Type B Positive Antibody Screen Negative OB - PN A/P Plan day: 1 Plan: routine care Comments: No problems, routine care Time Spent With Patient Time: Total time spent is greater than 50% in coordination of care (as documented) at patient's floor/unit and/or counseling patient: Exam Const: General: comfortable, no acute distress and alert Resp: Effort & Inspection: normal respiratory effort Auscultation: no crackles, no rales and no rhonchi Cardio: Rate: regular rate Heart sounds: no click, no murmurs and no rubs GI: Inspection: non-distended GI Palp: No Tenderness to palpation present (GI) Auscultation: normal bowel sounds Other: Incision - CDI Extrem: General: normal to inspection, no pedal edema and no calf tenderness
--- NOTE | 2024-08-16 08:03 | PM.OBDSVD ---
DS: Admitting Diagnosis Discharge Date 08/16/24 Admitting Diagnosis term DS: Discharge Diagnosis Discharge Diagnosis (1) Term delivered: Code(s): O80 - Encounter for full-term uncomplicated delivery Status: Acute OB - DS: Summary OB Procedures : None OB Procedures Intrapartum: Spontaneous Vag Delivery OB Procedures: : None Peripartum Data Laceration Description: None Episiotomy description: None Time Spent with Patient Time attestation: Total time spent providing and/or coordinating discharge services: DS: Data Data Completed and Pending Labs on day of discharge: Labs from last 24 hours 08/16/24 08/15/24 04:16 08:02 WBC 15.2 H RBC 4.68 Hgb 10.1 L 11.7 L Hct 31.0 L 37.7 MCV 80.6 MCH 25.0 L MCHC 31.0 L RDW 18.0 H Plt Count 259 MPV 11.9 H Immature Gran % (Auto) 1.6 H Neut % (Auto) 73.2 H Lymph % (Auto) 18.5 [place] % (Auto) 5.3 Eos % (Auto) 1.0 Baso % (Auto) 0.4 Lymph # (Auto) 2.81 [place] # (Auto) 0.8 H Eos # (Auto) 0.2 Baso # (Auto) 0.1 Abs Immat Gran (auto) 0.24 H Absolute Neuts (auto) 11.1 H Absolute Nucleated RBC 0.000 Nucleated RBC % 0.0 Syphilis IgG/IgM Ab Negative HIV 1&2 Ab/P24 Ag 4thGn Negative Blood Type B Positive Antibody Screen Negative Discharge Plan Discharge Discharging Clinician: Mendez Fuller Patient Disposition: Home Activity: pelvic rest Diet: regular Patient Instructions: Antibiotic Form Patient Language: Jordanian Stand Alone Forms: General Discharge Information Follow-up/Referrals: Mendez Fuller MD [Physician] - Discharge Medications: Continued PNV [id number] [] 28 mg iron- 800 mcg tablet 1 tablet PO DAILY Slow Fe 137 mg (45 mg iron) tablet extended release 137 mg PO DAILY Date of admission: 08/15/24 05:54 Primary Care Provider: Jacek Bernal Admitting Provider: Mendez Fuller Attending physician on admission: Mendez Fuller Condition: Stable
[2024-08-16 08:20] VITALS: BP 102/64; PULSE 79; RESP 16; TEMP 36.6; O2SAT 99
[2024-08-16] MEDS: MULTIVIT/MIN/PREN/FOL AC/IRON TABLET 1 TAB PO (08:34)
[2024-08-16] MEDS: FERROUS SULFATE DRIED 142 MG TABCR PO (08:34)
--- NOTE | 2024-08-16 10:45 | PC.NURSE ---
[id number] Mother verbalizes she has been able to independently latch infant with appropriate positioning and alignment, but this morning baby is sleepy after his circumcision and does not want to latch. Mother has attempted and is able to hand express and feed baby drops of colostrum, she will put baby skin to skin, watch for feeding cues and try again to latch soon. Mother is encouraged to call for assistance if her doesn’t latch, pain with latching, questions or concerns. Mother voiced understanding of information shared along with the mom/baby guide for an additional resource. Reported to the Primary RN. [id number] CLC returned to the room to check on mother and infant, per mother her infant was able to latch and effectively suck at the breast for 2 minutes, she denies any pain or discomfort. Mother to continue to watch for feeding cues. Reported to the Primary RN.
--- NOTE | 2024-08-16 12:11 | PC.NURSE ---
Consulted with mother concerning needs and she shared her ability to independently latch infant optimally without pain. Mother is feeding appropriately for growth of infant and understands stimulating to eat if needed. Infant has had appropriate feedings in the last 24 hours meets the outcomes for weight, output, blood sugar and jaundice at this time. Reinforced understanding of milk production, transition of milk, signs of adequate intake, transition of stool, prevention/relief of engorgement, plugged ducts, mastitis, responsive watching for feeding cues, the different methods of stimulating infant to breastfeed 1-3 hours after the start of the last feeding, community resources, and when to call a provider using the resource of the feeding sheet along with the mom and baby guide. Mother voiced understanding of the information shared, is confident to continue effectively her at home, when to call for assistance, denies any additional assistance or education at this time. [facility] Referral form faxed to [place] [facility]. Reported to the Primary RN.
[2024-08-17 12:50] VITALS: BP 118/85; PULSE 98; RESP 18; TEMP 36.9; O2SAT 100
== END 2024-08-16 13:09 | disposition home or self-care (01) | DRG 807 ==
LOC: ANHLDR 07:32 → ANHOB2 14:23
PROVIDERS: Admitting Provider Obstetrics & Gynecology; PCP Family Medicine Adolescent Medicine; Visit Provider Obstetrics & Gynecology
DX: O80 Encounter for full-term uncomplicated delivery (principal); Z37.0 Single live birth; Z3A.38 38 weeks gestation of pregnancy
CPT/HCPCS: 36415; 85014; 85018; 85025; 86593; 86703; 86850; 86900; 86901; A9270; G0432; J2590; J2795; J7120